=== PATIENT | male | born 1975 | race Caucasian/White ===

== ENCOUNTER 2016-11-27 13:07 | Emergency (ER) | payer OTHER ==
[~2016-11-27] VITALS: Ht 182.9 cm; Wt 90.7 kg
[~2016-11-27 13:07] MED LIST: ACETAMINOPHEN-1 EAC1 PO; APAP500 PO; CIPRO500 MG PO; DOXYCYCLINE 10100 MG PO; FLAGYL500 MG PO; HYDROCODONE-AP1 EAC6 PO; IBUPROFEN 800800 M1 PO; MOBIC7.5 MG PO; PHENAZOPYRIDIN200 M2 PO; ROBAXIN 750 MG750 M1 PO
[2016-11-27] MEDS ORDERED: NORCO 5-325 TA1 EACH PO (15:45)
[2016-11-27 15:46] VITALS: BP 172/78
[2016-11-27] MEDS ORDERED: CYCLOBENZAPRINE5 MG PO (16:30)
[2016-11-27] MEDS ORDERED: PREDNISONE 20 M20 MG PO (16:30)
== END 2016-11-27 16:34 | disposition home or self-care (01) ==
LOC: ER 13:07
DX: M54.41 Lumbago with sciatica, right side (principal); Z88.0 Allergy status to penicillin; Z91.010 Allergy to peanuts; Z88.1 Allergy status to other antibiotic agents; Z87.891 Personal history of nicotine dependence